=== PATIENT | male | born 1980 | race Caucasian/White ===

== ENCOUNTER 2020-03-12 22:06 | Emergency (ER) | payer OTHER, SELFPAY | END 2020-03-12 23:28 | disposition home or self-care (01) | LOC: MADERS 22:06 | DX: L73.2 Hidradenitis suppurativa (principal); I10 Essential (primary) hypertension; F17.210 Nicotine dependence, cigarettes, uncomplicated | CPT/HCPCS: 99282 ==

== ENCOUNTER 2022-09-09 01:11 | Emergency (ER) | payer SELFPAY ==
[2022-09-09] MEDS ORDERED: Bupivacaine PF 0.5% 30 ML VIAL ONE (01:39)
== END 2022-09-09 02:13 | disposition home or self-care (01) ==
LOC: MADERS 01:11
DX: S01.112A Laceration without foreign body of left eyelid and periocular area, initial encounter (principal); I10 Essential (primary) hypertension; F17.210 Nicotine dependence, cigarettes, uncomplicated; W26.8XXA Contact with other sharp object(s), not elsewhere classified, initial encounter
CPT/HCPCS: 12011; S0020

== ENCOUNTER 2023-04-01 19:41 | Emergency (ER) | payer SELFPAY ==
[~2023-04-01 19:41] MED LIST: Iopamidol 370 76% 200 ML VIAL ONE; Sodium Chloride 0.9% 100 ML BAG ONE
[2023-04-01 20:43] LABS: #Basophils 0.3 thou/uL (0.0-0.2); #Eosinphils 0.3 thou/uL (0.0-0.7); #Lymphocytes 3.7 thou/uL (1.20-3.40); #Monocytes 0.6 thou/uL (0.11-0.59); #Neutrophils 7.2 thou/uL (1.40-6.50); %Basophils 2.3 % (0.0-1.0); %Eosinophils 2.4 % (0.0-10.0); %Lymphocytes 30.6 % (21.0-51.0); %Monocytes 5.1 % (0.0-10.0); %Neutrophils 59.6 % (42.0-75.0); Hematocrit 50.2 % (42.0-52.0); Hemoglobin 17.6 g/dL (14.0-18.0); Mean Corpuscular HGB CONC 35.1 g/dL (32.0-36.0); Mean Corpuscular Hemoglobin 35.1 pg (27.0-31.0); Mean Platelet Volume 8.8 fL (7.4-10.4); Platelet Count 220 10x3/uL (130-400); RBC Distribution Width 12.4 % (11.5-14.5); Red Blood Cell (RBC) Count 5.02 mill/uL (4.70-6.10); White Blood Cell (WBC) Count 12.1 10x3/uL (4.8-10.8)
[2023-04-01] MEDS ORDERED: methylPREDNISolone Sod Succ/PF 125 MG/2 ML VIAL ONE (20:44)
[2023-04-01] MEDS ORDERED: Albuterol 200 PUFF (6.7GM INHALER) ONE (20:44)
[2023-04-01] MEDS ORDERED: Aspirin Chewable 81 MG TAB ONE (20:44)
[2023-04-01 21:01] LABS: ALT (SGPT) 61 U/L (8-55); AST (SGOT) 90 U/L (5-34); Albumin 4.6 g/dL (3.5-5.0); Alkaline Phosphatase 97 U/L (40-110); Anion Gap 19 mmol/L (10-20); BUN (Urea Nitrogen) 4 mg/dL (8.9-20.6); Bilirubin, Total 0.6 mg/dL (0.2-1.2); Calc. Creatinine Clearance 0 mL/min (70-130); Calcium 9.3 mg/dL (7.8-10.44); Carbon Dioxide 21 mmol/L (22-29); Chloride 105 mmol/L (98-107); Estimated GFR 110; Globulin 3.3 g/dL (2.4-3.5); Glucose 132 mg/dL (70-105); Lipase 31 U/L (8-78); Potassium 4.1 mmol/L (3.5-5.1); Protein, Total 7.9 g/dL (6.0-8.3); Sodium 141 mmol/L (136-145)
[2023-04-01 21:07] LABS: Troponin I Less than 0.010 ng/mL (< 0.028)
[2023-04-01] MEDS ORDERED: Lactated Ringer's 1,000 ML ONE (23:29)
[2023-04-01 23:49] LABS: Troponin I Less than 0.010 ng/mL (< 0.028)
== END 2023-04-02 00:30 | disposition home or self-care (01) ==
LOC: MADERS 19:41
DX: J45.909 Unspecified asthma, uncomplicated (principal); K76.0 Fatty (change of) liver, not elsewhere classified; I10 Essential (primary) hypertension; F17.210 Nicotine dependence, cigarettes, uncomplicated
CPT/HCPCS: 71046; 71275; 80053; 83690; 84484; 85025; 85379; 93005; 94760; 96361; 96374; J2930; J7120

== ENCOUNTER 2023-09-11 18:54 | Emergency (ER) | payer SELFPAY ==
[2023-09-11] MEDS ORDERED: Lidocaine 1% PF 5 ML VIAL ONE (19:34)
[2023-09-11] MEDS ORDERED: Mupirocin 2% Ointment 22 GM Tube ONE (19:34)
[2023-09-11] MEDS ORDERED: cefTRIAXone (ROCEPHIN) 1 GM VIAL ONE (19:35)
== END 2023-09-11 20:28 | disposition home or self-care (01) ==
LOC: MADERS 18:54
DX: L03.113 Cellulitis of right upper limb (principal); L01.00 Impetigo, unspecified; I10 Essential (primary) hypertension; F17.210 Nicotine dependence, cigarettes, uncomplicated
CPT/HCPCS: 87070; 87077; 87186; 87205; 96372; 99283; J0696

== ENCOUNTER 2023-09-12 15:47 | Emergency (ER) | payer SELFPAY | END 2023-09-12 17:03 | disposition home or self-care (01) | LOC: MADERS 15:47 | DX: L03.113 Cellulitis of right upper limb (principal); I10 Essential (primary) hypertension; F17.210 Nicotine dependence, cigarettes, uncomplicated | CPT/HCPCS: 99282 ==